=== PATIENT | male | born 1960 | race Caucasian/White ===

== ENCOUNTER → 2022-02-09 | Outpatient (CLI) | payer OTHER | LOC: KOH-I 16:18 | DX: S52.501A Unspecified fracture of the lower end of right radius, initial encounter for closed fracture (principal) | CPT/HCPCS: 73200 ==

== ENCOUNTER → 2022-02-13 | Outpatient (CLI) | payer OTHER ==
[~2022-02-13] MED LIST: ATENOLOL25 MG PO; ATORVASTATIN CA80 MG PO; BRILINTA 90 MG90 MG PO; ECOTRIN81 MG PO; FLUTICASONE PROPIONA; LISINOPRIL40 MG PO; PERCOCET 5-3251 EACH PO; PERCOCET 7.5-31 EACH PO; VITAMIN D350 MC3 PO; ZYRTEC10 M3 PO
[2022-02-13 12:09] LABS: BUN/CREATININE RATIO 22 (0-10)
== END ==
LOC: OPSV2 10:00
PROVIDERS: Orthopaedic Surgery
DX: Z01.818 Encounter for other preprocedural examination (principal); S62.101A Fracture of unspecified carpal bone, right wrist, initial encounter for closed fracture
CPT/HCPCS: 36415; 80048; 93005

== ENCOUNTER → 2022-02-17 | Day surgery (SDC) | payer OTHER ==
[~2022-02-17] VITALS: Ht 185.4 cm; Wt 88.0 kg
== END | disposition home or self-care (01) ==
LOC: OR 07:53
DX: S52.571A Other intraarticular fracture of lower end of right radius, initial encounter for closed fracture (principal); S62.231A Other displaced fracture of base of first metacarpal bone, right hand, initial encounter for closed fracture; V89.2XXA Person injured in unspecified motor-vehicle accident, traffic, initial encounter; I10 Essential (primary) hypertension; E78.5 Hyperlipidemia, unspecified; I25.10 Atherosclerotic heart disease of native coronary artery without angina pectoris; Z95.5 Presence of coronary angioplasty implant and graft; F17.210 Nicotine dependence, cigarettes, uncomplicated; Z79.82 Long term (current) use of aspirin; Z79.891 Long term (current) use of opiate analgesic; Z79.899 Other long term (current) drug therapy
CPT/HCPCS: 73100; 76000; C1713; J0171; J0690; J1100; J1885; J2001; J2250; J2405; J2704; J2795; J3010; J7120